=== PATIENT | female | born 1955 | race Caucasian/White ===

== ENCOUNTER 2025-03-17 19:55 | Emergency (ER) | payer MEDICARE, BC ==
[~2025-03-17] VITALS: Ht 162.6 cm; Wt 63.5 kg
[2025-03-17 20:00] VITALS: BP 95/51; TEMP 98
[2025-03-17 20:34] LABS: PLATELET COUNT (AUTO) 283 K/uL (150-450); RED BLOOD CELL COUNT(AUTO) 4.19 MIL/uL (4.0-5.2); RED CELL DISTRIBUTION WIDTH 14.5 % (11.5-15.0); WHITE BLOOD COUNT (AUTO) 10.1 K/uL (4.3-11.0)
[2025-03-17 20:45] LABS: CALCIUM, SERUM 9.0 mg/dL (8.5-10.1); CREATININE 0.9 mg/dL (0.6-1.3); SODIUM SERUM 137.0 mmol/L (136-145); UREA NITROGEN, BLOOD 11.0 mg/dL (7-18)
[2025-03-17 21:35] VITALS: O2SAT 98
== END 2025-03-17 21:35 | disposition home or self-care (01) ==
LOC: ER 19:57
DX: K94.09 Other complications of colostomy (principal); I10 Essential (primary) hypertension; Z88.0 Allergy status to penicillin
CPT/HCPCS: 36415; 80048-TC; 85025-TC